=== PATIENT | female | born 1985 | race Caucasian/White ===

== ENCOUNTER 2022-08-28 16:32 | Day surgery (SDC) | payer OTHER ==
[2022-08-28] MEDS ORDERED: hydrALAZINE 20 MG/ML VIAL SLOW IVP PRN (17:21)
[2022-08-28 18:04] VITALS: BMI 33.0
== END 2022-08-28 20:18 | disposition home or self-care (01) ==
LOC: CSHLD/OP 16:32
PROVIDERS: ATTEND Family Medicine
DX: O36.8120 Decreased fetal movements, second trimester, not applicable or unspecified (principal); Z79.899 Other long term (current) drug therapy; Z88.5 Allergy status to narcotic agent; Z88.8 Allergy status to other drugs, medicaments and biological substances; Z3A.22 22 weeks gestation of pregnancy
CPT/HCPCS: 76815; 99281

== ENCOUNTER 2022-12-11 09:00 | Inpatient (IN) | payer OTHER ==
[~2022-12-11 09:00] MED LIST: Bupivacaine 0.25% HCL 30 ML VIAL ONE
[2022-12-11 09:40] VITALS: BMI 35.1
[2022-12-11] MEDS ORDERED: Diphenoxylate HCl/Atropine Tablet PO PRN (09:43)
[2022-12-11] MEDS ORDERED: fentaNYL 50 mcg/mL 1 mL Vial SLOW IVP PRN (09:43)
[2022-12-11] MEDS ORDERED: Lidocaine 1% (PF) 30 ML VIAL SC PRN (09:43)
[2022-12-11] MEDS ORDERED: Ibuprofen 800 MG TAB PO PRN (09:43)
[2022-12-11] MEDS ORDERED: Methylergonovine 0.2 MG/ML VIAL IM PRN (09:43)
[2022-12-11] MEDS ORDERED: Carboprost 250 MCG/ML AMP IM PRN (09:43)
[2022-12-11] MEDS ORDERED: Tranexamic Acid 1,000 MG/10 ML VIAL IVP PRN (09:43)
[2022-12-11] MEDS ORDERED: Promethazine HCl 25 MG/ML VIAL IM PRN ×2 (09:43→14:55)
[2022-12-11] MEDS ORDERED: hydrALAZINE 20 MG/ML VIAL SLOW IVP PRN ×2 (09:43→20:51)
[2022-12-11] MEDS ORDERED: Ondansetron PF 4 MG/2 ML Vial IVP PRN ×3 (09:43→20:51)
[2022-12-11] MEDS ORDERED: Misoprostol 200 MCG TAB PR PRN (09:43)
[2022-12-11] MEDS ORDERED: Lactated Ringer's 1,000 ML IV SCH (09:45)
[2022-12-11] MEDS ORDERED: NS w/ Oxytocin 30 units 500 ML IV SCH ×3 (09:45)
[2022-12-11] MEDS ORDERED: Penicillin G Potassium 5 MILL.UNITS in Sodium Chloride 0.9% 100 ML IVPB SCH (09:45)
[2022-12-11 10:11] LABS: Hematocrit 35.9 % (34.9-44.5); Hemoglobin 12.2 g/dL (12.0-15.5); Mean Corpuscular Hemoglobin 30.8 pg (27.0-33.0); Mean Corpuscular Volume 90.7 fl (81.6-98.3); Mean Platelet Volume 12.9 fl (7.4-10.4); Platelet Count 179 10x3/uL (150-450); RBC Distribution Width 12.9 % (11.5-14.5); Red Blood Cell (RBC) Count 3.96 10x6/uL (3.90-5.03); White Blood Cell (WBC) Count 8.5 10x3/uL (3.5-10.5)
[2022-12-11 10:44] LABS: HBSAg Index 0.19 S/CO (0-0.99); Hep B Surf Ag - L&D Non-Reactive S/CO (NonReactive); Syphilis Antibody Nonreactive (Nonreactive); Syphilis Antibody Index 0.04 S/CO (<1.00 Non-Reactive)
[2022-12-11] MEDS ORDERED: fentaNYL/Ropivacaine Epidural 100 ML ONE (13:17)
[2022-12-11] MEDS: Penicillin G 2.5 MILL.units 2.5 MILL.UNITS in Premix Bag 1 BAG IVPB SCH (14:53)
[2022-12-11] MEDS ORDERED: Lactated Ringer's 500 ML IV PRN (14:55)
[2022-12-11] MEDS ORDERED: Naloxone HCl 0.4 mg/ml Vial IVP PRN ×2 (14:55)
[2022-12-11] MEDS ORDERED: diphenhydrAMINE 50 MG/ML VIAL IVP PRN (14:55)
[2022-12-11] MEDS ORDERED: Moisturizing Cream (Eucerin) 113 GM JAR TOP PRN (14:55)
[2022-12-11] MEDS ORDERED: ePHEDrine Sulfate 50 MG/10 ML VIAL SLOW IVP PRN (14:55)
[2022-12-11] MEDS ORDERED: Acetaminophen 325 MG TAB PO PRN (14:55)
[2022-12-11] MEDS ORDERED: Communication Order-Pharmacy FS SCH (15:00)
[2022-12-11] MEDS ORDERED: fentaNYL 2 mcg/Ropivacaine 0.2% Epidural 100 ML CADD EPIDURAL SCH ×2 (15:00)
[2022-12-11] MEDS ORDERED: Ondansetron PF 4 MG/2 ML Vial ONE (15:18)
[2022-12-11] MEDS ORDERED: Benzocaine-Menthol 82.5 ML CAN TOP PRN (20:51)
[2022-12-11] MEDS ORDERED: Milk Of Magnesia 30 ML UDCUP PO PRN (20:51)
[2022-12-11] MEDS ORDERED: Boostrix 0.5 ML (Tdap) VIAL (>/=7 yrs of age) IM ONE (20:51)
[2022-12-11] MEDS ORDERED: Bisacodyl 10 MG SUPP PR PRN (20:51)
[2022-12-11] MEDS ORDERED: diphenhydrAMINE 25 MG CAP PO PRN (20:51)
[2022-12-11] MEDS: Ibuprofen 800 MG TAB PO SCH (22:20)
[2022-12-11] MEDS: Docusate 100 MG CAP PO SCH (22:20)
[2022-12-12] MEDS: Ibuprofen 800 MG TAB PO SCH ×3 (05:20→21:58)
[2022-12-12] MEDS: HYDROcodone/Acetaminophen 5/325 mg Tablet PO PRN ×3 (06:51→19:40)
[2022-12-12] MEDS: Ferrous Sulfate 325 MG TAB PO SCH ×2 (07:43→14:56)
[2022-12-12] MEDS: Penicillin G 2.5 MILL.units 2.5 MILL.UNITS in Premix Bag 1 BAG IVPB SCH (07:44)
[2022-12-12] MEDS: Docusate 100 MG CAP PO SCH ×2 (09:03→19:40)
[2022-12-12] MEDS: Prenatal Vitamin 1 TAB PO SCH (09:03)
[2022-12-13] MEDS: Ibuprofen 800 MG TAB PO SCH ×2 (06:16→13:32)
[2022-12-13] MEDS: Ferrous Sulfate 325 MG TAB PO SCH (07:32)
[2022-12-13 08:00] VITALS: BP 113/69; TEMP 98.5
[2022-12-13] MEDS: Prenatal Vitamin 1 TAB PO SCH (08:45)
[2022-12-13] MEDS: Docusate 100 MG CAP PO SCH (08:45)
[2022-12-13] MEDS: HYDROcodone/Acetaminophen 5/325 mg Tablet PO PRN ×2 (08:46→13:29)
== END 2022-12-13 16:10 | disposition home or self-care (01) | DRG 807 ==
LOC: CSHLD 09:00 → CSHPP 21:02
PROVIDERS: ADMIT Family Medicine; ATTEND Family Medicine
PROC: 10E0XZZ Delivery of Products of Conception, External Approach (ICD-10-PCS; principal; 2022-12-11)
PROC: 10907ZC Drainage of Amniotic Fluid, Therapeutic from Products of Conception, Via Natural or Artificial Opening (ICD-10-PCS; 2022-12-11)
PROC: 3E033VJ Introduction of Other Hormone into Peripheral Vein, Percutaneous Approach (ICD-10-PCS; 2022-12-11)
PROC: 3E03329 Introduction of Other Anti-infective into Peripheral Vein, Percutaneous Approach (ICD-10-PCS; 2022-12-11)
DX: O36.5930 Maternal care for other known or suspected poor fetal growth, third trimester, not applicable or unspecified (principal); Z37.0 Single live birth; O69.81X0 Labor and delivery complicated by cord around neck, without compression, not applicable or unspecified; Z3A.37 37 weeks gestation of pregnancy; Z88.5 Allergy status to narcotic agent; Z88.2 Allergy status to sulfonamides; O99.824 Streptococcus B carrier state complicating childbirth
CPT/HCPCS: 51702; 85027; 86780; 86850; 86900; 86901; 87340; J2405; J2540; J2590; J3490; S0020

== ENCOUNTER 2022-12-17 16:19 | Emergency (ER) | payer OTHER ==
[2022-12-17 17:06] LABS: #Eosinphils 0.2 10x3/uL (0.0-0.5); #Monocytes 0.6 10x3/uL (0.0-1.1); %Basophils 0.4 % (0.0-2.0); %Lymphocytes 27.1 % (18.0-47.0); %Monocytes 5.3 % (0.0-10.0); %Neutrophils 64.9 % (40.0-75.0); Hematocrit 37.3 % (34.9-44.5); Hemoglobin 12.5 g/dL (12.0-15.5); Mean Corpuscular HGB CONC 33.5 g/dL (32.0-36.0); Mean Corpuscular Hemoglobin 30.6 pg (27.0-33.0); Mean Corpuscular Volume 91.2 fl (81.6-98.3); Mean Platelet Volume 11.3 fl (7.4-10.4); Platelet Count 255 10x3/uL (150-450); RBC Distribution Width 12.8 % (11.5-14.5); Red Blood Cell (RBC) Count 4.09 10x6/uL (3.90-5.03); White Blood Cell (WBC) Count 10.8 10x3/uL (3.5-10.5)
[2022-12-17 17:17] LABS: ALT (SGPT) 17 U/L (8-55); AST (SGOT) 46 U/L (5-34); Albumin 3.8 g/dL (3.5-5.0); Alkaline Phosphatase 79 U/L (40-110); Anion Gap 15 mmol/L (10-20); BUN (Urea Nitrogen) 8 mg/dL (7.0-18.7); Bilirubin, Total 0.5 mg/dL (0.2-1.2); Calc. Creatinine Clearance 0 mL/min (70-130); Calcium 9.5 mg/dL (7.8-10.44); Carbon Dioxide 20 mmol/L (22-29); Chloride 110 mmol/L (98-107); Estimated GFR 109; Glucose 82 mg/dL (70-105); Potassium 3.8 mmol/L (3.5-5.1); Protein, Total 6.8 g/dL (6.0-8.3); Sodium 141 mmol/L (136-145)
== END 2022-12-17 18:36 | disposition home or self-care (01) ==
LOC: CSHERS 16:19
DX: O72.1 Other immediate postpartum hemorrhage (principal); O99.893 Other specified diseases and conditions complicating puerperium; R06.02 Shortness of breath; M79.604 Pain in right leg
CPT/HCPCS: 36415; 80053; 85025; 85379

== ENCOUNTER 2022-12-23 21:48 | Emergency (ER) | payer OTHER ==
[2022-12-24] MEDS ORDERED: fentaNYL 50 mcg/mL 1 mL Vial ONE (00:20)
[2022-12-24] MEDS ORDERED: Ketorolac Tromethamine 30 MG/ML VIAL ONE (00:21)
[2022-12-24] MEDS ORDERED: cefTRIAXone (ROCEPHIN) 1 GM VIAL ONE (00:21)
[2022-12-24] MEDS ORDERED: Ondansetron PF 4 MG/2 ML Vial ONE (00:25)
[2022-12-24 00:51] LABS: Bilirubin Neg (Negative); Blood, Urine 150 (Negative); Clarity Clear (Clear); Glucose, Urine (Dipstick) Normal (Negative); Ketone, Urine 5 mg/dL (Negative); Leukocyte 500 (Negative); Nitrite Negative (Negative); Protein, Urine (Dipstick) 15 mg/dl (Neg-Trace); Specific Gravity, Urine 1.015 (1.005-1.030); Urobilinogen Normal mg/dL (Less than 2)
[2022-12-24 00:51] LABS: #Eosinphils 0.4 10x3/uL (0.0-0.5); #Monocytes 0.4 10x3/uL (0.0-1.1); %Basophils 0.4 % (0.0-2.0); %Eosinophils 4.1 % (0.0-6.0); %Lymphocytes 17.3 % (18.0-47.0); %Monocytes 3.8 % (0.0-10.0); Hematocrit 34.7 % (34.9-44.5); Hemoglobin 11.8 g/dL (12.0-15.5); Mean Corpuscular Hemoglobin 30.6 pg (27.0-33.0); Mean Corpuscular Volume 89.9 fl (81.6-98.3); Mean Platelet Volume 11.6 fl (7.4-10.4); Platelet Count 210 10x3/uL (150-450); RBC Distribution Width 12.4 % (11.5-14.5); Red Blood Cell (RBC) Count 3.86 10x6/uL (3.90-5.03); White Blood Cell (WBC) Count 10.8 10x3/uL (3.5-10.5)
[2022-12-24 00:58] LABS: Bacteria/HPF 1+ HPF (None Seen); CAUTI Indications for Culture Fever or rigors; RBC/HPF 0-3 HPF (0-3); Squamous Epithelial 0-3 HPF (0-3)
[2022-12-24 00:59] LABS: Urine Culture Reflex Yes Yes
[2022-12-24 01:17] LABS: ALT (SGPT) 37 U/L (8-55); AST (SGOT) 44 U/L (5-34); Albumin 3.3 g/dL (3.5-5.0); Alkaline Phosphatase 87 U/L (40-110); Anion Gap 14 mmol/L (10-20); BUN (Urea Nitrogen) 9 mg/dL (7.0-18.7); Bilirubin, Total 0.3 mg/dL (0.2-1.2); Calc. Creatinine Clearance 0 mL/min (70-130); Calcium 8.2 mg/dL (7.8-10.44); Carbon Dioxide 20 mmol/L (22-29); Chloride 108 mmol/L (98-107); Estimated GFR 109; Globulin 2.8 g/dL (2.4-3.5); Glucose 101 mg/dL (70-105); Lipase 30 U/L (8-78); Potassium 2.8 mmol/L (3.5-5.1); Protein, Total 6.1 g/dL (6.0-8.3); Sodium 139 mmol/L (136-145)
[2022-12-24] MEDS ORDERED: Potassium Chloride 20 MEQ TAB ONE (01:36)
[2022-12-24 01:51] LABS: Magnesium 1.5 mg/dL (1.6-2.6)
[2022-12-24] MEDS ORDERED: Magnesium 2 GM/50 ML BAG (IN WATER) ONE (02:38)
== END 2022-12-24 03:23 | disposition home or self-care (01) ==
LOC: CSHERS 21:48
DX: N61.0 Mastitis without abscess (principal); N30.00 Acute cystitis without hematuria; E83.42 Hypomagnesemia; E87.6 Hypokalemia
CPT/HCPCS: 36415; 80053; 81001; 83690; 83735; 85025; 87086; 96365; 96367; 96375; J0696; J1885; J2405; J3010; J3475

== ENCOUNTER 2023-11-08 11:58 | Inpatient (IN) | payer OTHER ==
[2023-11-08 08:40] LABS: #Basophils 0.03 10x3/uL (0.0-0.2); #Eosinphils 0.06 10x3/uL (0.0-0.5); #Monocytes 0.27 10x3/uL (0.0-1.1); #Neutrophils 7.13 10x3/uL (1.5-8.4); %Basophils 0.3 % (0.0-2.0); %Eosinophils 0.7 % (0.0-6.0); %Lymphocytes 18.4 % (18.0-47.0); %Monocytes 2.9 % (0.0-10.0); %Neutrophils 77.4 % (40.0-75.0); Hemoglobin 13.2 g/dL (12.0-15.5); Mean Corpuscular HGB CONC 34.7 g/dL (32.0-36.0); Mean Corpuscular Hemoglobin 30.3 pg (27.0-33.0); Mean Corpuscular Volume 87.4 fL (81.6-98.3); Platelet Count 207 10x3/uL (150-450); RBC Distribution Width 12.4 % (11.5-14.5); Red Blood Cell (RBC) Count 4.35 10x6/uL (3.90-5.03); White Blood Cell (WBC) Count 9.2 10x3/uL (3.5-10.5)
[2023-11-08 08:56] LABS: ALT (SGPT) 11 U/L (8-55); AST (SGOT) 35 U/L (5-34); Albumin 3.4 g/dL (3.5-5.0); Alkaline Phosphatase 43 U/L (40-110); Anion Gap 15 mmol/L (10-20); BUN (Urea Nitrogen) 6 mg/dL (7.0-18.7); Bilirubin, Total 0.4 mg/dL (0.2-1.2); Calc. Creatinine Clearance 0 mL/min (70-130); Calcium 9.2 mg/dL (7.8-10.44); Carbon Dioxide 17 mmol/L (22-29); Chloride 109 mmol/L (98-107); Estimated GFR 110; Globulin 3.5 g/dL (2.4-3.5); Glucose 107 mg/dL (70-105); Potassium 3.9 mmol/L (3.5-5.1); Protein, Total 6.9 g/dL (6.0-8.3); Sodium 137 mmol/L (136-145)
[~2023-11-08 11:58] MED LIST changes: -Bupivacaine 0.25% HCL 30 ML VIAL ONE; +Morphine 2 MG/ML VIAL ONE; +Ondansetron PF 4 MG/2 ML Vial ONE
[2023-11-08 12:28] VITALS: BMI 38.4
[2023-11-08] MEDS ORDERED: Ondansetron PF 4 MG/2 ML Vial IVP PRN (12:59)
[2023-11-08] MEDS ORDERED: hydrALAZINE 20 MG/ML VIAL SLOW IVP PRN (12:59)
[2023-11-08] MEDS ORDERED: Misoprostol 200 MCG TAB PR PRN (12:59)
[2023-11-08] MEDS ORDERED: Lidocaine 1% (PF) 30 ML VIAL SC PRN (12:59)
[2023-11-08] MEDS ORDERED: Tranexamic Acid 1,000 MG/10 ML VIAL IVP PRN (12:59)
[2023-11-08] MEDS ORDERED: Promethazine HCl 25 MG/ML VIAL IM PRN (12:59)
[2023-11-08] MEDS ORDERED: Carboprost 250 MCG/ML AMP IM PRN (12:59)
[2023-11-08] MEDS ORDERED: fentaNYL 50 mcg/mL 1 mL Vial SLOW IVP PRN (12:59)
[2023-11-08] MEDS ORDERED: Methylergonovine 0.2 MG/ML VIAL IM PRN (12:59)
[2023-11-08] MEDS ORDERED: Diphenoxylate HCl/Atropine Tablet PO PRN (12:59)
[2023-11-08] MEDS ORDERED: Oxytocin 30 units/NS 500 ML 500 ML IV SCH (13:00)
[2023-11-08] MEDS: Acetaminophen 500 MG TAB PO PRN (13:42)
[2023-11-08] MEDS: Lactated Ringer's 1,000 ML IV SCH (13:43)
[2023-11-08] MEDS: Misoprostol 100 MCG TAB VAG SCH (14:11)
[2023-11-08] MEDS ORDERED: fentaNYL/Ropivacaine Epidural 0 ML ONE (18:08)
[2023-11-08] MEDS: HYDROcodone/Acetaminophen 5/325 mg Tablet PO PRN (21:36)
[2023-11-08] MEDS: Ibuprofen 800 MG TAB PO PRN (21:38)
[2023-11-09] MEDS ORDERED: Ferrous Sulfate 325 MG TAB PO SCH (08:00)
[2023-11-09] MEDS ORDERED: diphenhydrAMINE 25 MG CAP PO PRN (08:05)
[2023-11-09] MEDS ORDERED: hydrALAZINE 20 MG/ML VIAL SLOW IVP PRN (08:05)
[2023-11-09] MEDS ORDERED: Bisacodyl 10 MG SUPP PR PRN (08:05)
[2023-11-09] MEDS ORDERED: Zolpidem Tartrate 5 MG TAB PO PRN (08:05)
[2023-11-09] MEDS ORDERED: Boostrix 0.5 ML (Tdap) VIAL (>/=7 yrs of age) IM ONE (08:05)
[2023-11-09] MEDS ORDERED: Milk Of Magnesia 30 ML UDCUP PO PRN (08:05)
[2023-11-09] MEDS ORDERED: Promethazine HCl 25 MG/ML VIAL IM PRN (08:05)
[2023-11-09] MEDS ORDERED: Ondansetron PF 4 MG/2 ML Vial IVP PRN (08:05)
[2023-11-09] MEDS ORDERED: HYDROcodone/Acetaminophen 5/325 mg Tablet PO PRN (08:05)
[2023-11-09] MEDS ORDERED: Ibuprofen 800 MG TAB PO SCH (08:30)
[2023-11-09] MEDS ORDERED: Docusate 100 MG CAP PO SCH (09:00)
== END 2023-11-09 10:33 | disposition home or self-care (01) | DRG 779 ==
LOC: CSHLD/OP 11:58 → CSHLD 11:58 → CSHLD/OP 12:01 → CSHLD 12:01 → EDSTATUS 12:13 → CSHLD 12:19
PROVIDERS: ADMIT Family Medicine; ATTEND Family Medicine
PROC: 10E0XZZ Delivery of Products of Conception, External Approach (ICD-10-PCS; principal; 2023-11-08)
DX: O02.1 Missed abortion (principal); O14.12 Severe pre-eclampsia, second trimester; Z3A.19 19 weeks gestation of pregnancy
CPT/HCPCS: 76815; 80053; 85025; 86850; 86900; 86901; 88300; 88305; 93005; 99285; J2272; J2405; J7120

== ENCOUNTER 2024-05-23 22:21 | Emergency (ER) | payer MEDICAID, OTHER ==
[2024-05-23 23:25] LABS: #Basophils 0.05 10x3/uL (0.0-0.2); #Eosinophils 0.07 10x3/uL (0.0-0.5); #Monocytes 0.48 10x3/uL (0.0-1.1); #Neutrophils 5.61 10x3/uL (1.5-8.4); %Basophils 0.5 % (0.0-2.0); %Eosinophils 0.7 % (0.0-6.0); %Lymphocytes 33.3 % (18.0-47.0); %Monocytes 5.1 % (0.0-10.0); %Neutrophils 60.2 % (40.0-75.0); Hematocrit 40.6 % (34.9-44.5); Hemoglobin 13.3 g/dL (12.0-15.5); Mean Corpuscular HGB CONC 32.8 g/dL (32.0-36.0); Mean Corpuscular Hemoglobin 29.8 pg (27.0-33.0); Mean Corpuscular Volume 90.8 fL (81.6-98.3); Mean Platelet Volume 11.3 fL (7.4-10.4); Platelet Count 298 10x3/uL (150-450); RBC Distribution Width 12.3 % (11.5-14.5); Red Blood Cell (RBC) Count 4.47 10x6/uL (3.90-5.03); White Blood Cell (WBC) Count 9.34 10x3/uL (3.5-10.5)
[2024-05-23 23:37] LABS: Anion Gap 13 mmol/L (10-20); BUN (Urea Nitrogen) 7 mg/dL (7.0-18.7); Calc. Creatinine Clearance 0 mL/min (70-130); Calcium 9.3 mg/dL (7.8-10.44); Carbon Dioxide 19 mmol/L (22-29); Chloride 109 mmol/L (98-107); Estimated GFR 105; Glucose 95 mg/dL (70-105); Potassium 3.6 mmol/L (3.5-5.1); Sodium 137 mmol/L (136-145)
[2024-05-23 23:59] LABS: Bilirubin Neg (Negative); Blood, Urine Negative (Negative); Clarity Clear (Clear); Glucose, Urine (Dipstick) Normal (Negative); Ketone, Urine 15 mg/dL (Negative); Leukocyte Negative (Negative); Nitrite Negative (Negative); Protein, Urine (Dipstick) Negative (Neg-Trace); Specific Gravity, Urine 1.025 (1.005-1.030); Urobilinogen Normal mg/dL (Less than 2)
[2024-05-24 00:13] LABS: CAUTI Indications for Culture Pelvic or flank pain; RBC/HPF 0-3 HPF (0-3); WBC/HPF 0-3 HPF (0-3)
[2024-05-24 00:14] LABS: Bacteria/HPF 1+ HPF (None Seen)
[2024-05-24 00:15] LABS: Urine Culture Reflex No No
[2024-05-24] MEDS ORDERED: Acetaminophen 325 MG TAB ONE (01:06)
== END 2024-05-24 03:56 | disposition home or self-care (01) ==
LOC: CSHERS 22:21
DX: O20.0 Threatened abortion (principal); Z87.891 Personal history of nicotine dependence
CPT/HCPCS: 76856; 80048; 81001; 84702; 85025

== ENCOUNTER 2024-05-26 16:53 | Emergency (ER) | payer OTHER ==
[2024-05-26 17:40] LABS: #Basophils 0.04 10x3/uL (0.0-0.2); #Eosinophils 0.07 10x3/uL (0.0-0.5); #Monocytes 0.64 10x3/uL (0.0-1.1); #Neutrophils 3.33 10x3/uL (1.5-8.4); %Basophils 0.7 % (0.0-2.0); %Eosinophils 1.2 % (0.0-6.0); %Lymphocytes 27.8 % (18.0-47.0); %Monocytes 11.3 % (0.0-10.0); %Neutrophils 58.6 % (40.0-75.0); Hematocrit 38.7 % (34.9-44.5); Hemoglobin 12.7 g/dL (12.0-15.5); Mean Corpuscular HGB CONC 32.8 g/dL (32.0-36.0); Mean Corpuscular Hemoglobin 30.4 pg (27.0-33.0); Mean Corpuscular Volume 92.6 fL (81.6-98.3); Mean Platelet Volume 11.3 fL (7.4-10.4); Platelet Count 220 10x3/uL (150-450); RBC Distribution Width 12.7 % (11.5-14.5); Red Blood Cell (RBC) Count 4.18 10x6/uL (3.90-5.03); White Blood Cell (WBC) Count 5.68 10x3/uL (3.5-10.5)
[2024-05-26 17:44] LABS: Bilirubin Neg (Negative); Blood, Urine 25 (Negative); Clarity Clear (Clear); Glucose, Urine (Dipstick) Normal (Negative); Ketone, Urine Negative (Negative); Leukocyte Negative (Negative); Nitrite Negative (Negative); Protein, Urine (Dipstick) 15 mg/dl (Neg-Trace); Urobilinogen Normal mg/dL (Less than 2)
[2024-05-26 17:52] LABS: ALT (SGPT) 13 U/L (8-55); AST (SGOT) 36 U/L (5-34); Albumin 3.7 g/dL (3.5-5.0); Alkaline Phosphatase 42 U/L (40-110); Anion Gap 13 mmol/L (10-20); BUN (Urea Nitrogen) 6 mg/dL (7.0-18.7); Bilirubin, Total 0.2 mg/dL (0.2-1.2); Calc. Creatinine Clearance 0 mL/min (70-130); Calcium 9.1 mg/dL (7.8-10.44); Carbon Dioxide 20 mmol/L (22-29); Chloride 110 mmol/L (98-107); Estimated GFR 107; Globulin 3.5 g/dL (2.4-3.5); Glucose 91 mg/dL (70-105); Potassium 3.9 mmol/L (3.5-5.1); Protein, Total 7.2 g/dL (6.0-8.3); Sodium 139 mmol/L (136-145)
[2024-05-26 19:03] LABS: Bacteria/HPF Rare-Few HPF (None Seen); CAUTI Indications for Culture Pregnancy; RBC/HPF 0-3 HPF (0-3); Squamous Epithelial 0-3 HPF (0-3); WBC/HPF 0-3 HPF (0-3)
[2024-05-26 19:04] LABS: Urine Culture Reflex Yes Yes
== END 2024-05-26 20:13 | disposition home or self-care (01) ==
LOC: CSHERS 16:53
DX: O03.4 Incomplete spontaneous abortion without complication (principal); O98.511 Other viral diseases complicating pregnancy, first trimester; B34.9 Viral infection, unspecified
CPT/HCPCS: 36415; 76801; 80053; 81001; 84702; 85025; 87086; 87428

== ENCOUNTER 2024-06-13 13:32 | Emergency (ER) | payer OTHER ==
[2024-06-13 14:36] LABS: #Basophils 0.06 10x3/uL (0.0-0.2); #Eosinophils 0.11 10x3/uL (0.0-0.5); #Monocytes 0.35 10x3/uL (0.0-1.1); #Neutrophils 4.28 10x3/uL (1.5-8.4); %Basophils 0.8 % (0.0-2.0); %Eosinophils 1.4 % (0.0-6.0); %Lymphocytes 38.7 % (18.0-47.0); %Monocytes 4.5 % (0.0-10.0); %Neutrophils 54.3 % (40.0-75.0); Hematocrit 35.4 % (34.9-44.5); Hemoglobin 12.1 g/dL (12.0-15.5); Mean Corpuscular HGB CONC 34.2 g/dL (32.0-36.0); Mean Corpuscular Hemoglobin 30.5 pg (27.0-33.0); Mean Corpuscular Volume 89.2 fL (81.6-98.3); Mean Platelet Volume 11.2 fL (7.4-10.4); Platelet Count 336 10x3/uL (150-450); RBC Distribution Width 12.7 % (11.5-14.5); Red Blood Cell (RBC) Count 3.97 10x6/uL (3.90-5.03); White Blood Cell (WBC) Count 7.86 10x3/uL (3.5-10.5)
[2024-06-13 14:47] LABS: PTT 27.6 sec (22.0-33.0); Prothrombin Time 10.7 sec (9.5-12.1)
[2024-06-13] MEDS ORDERED: Ketorolac Tromethamine 30 MG (1 mL) VIAL ONE (15:05)
[2024-06-13 15:12] LABS: ALT (SGPT) 17 U/L (Less than 34); AST (SGOT) 55 U/L (11-34); Albumin 4.1 g/dL (3.1-4.5); Alkaline Phosphatase 58 U/L (40-110); Anion Gap 15 mmol/L (10-20); BUN (Urea Nitrogen) 7 mg/dL (7.0-18.7); Bilirubin, Total 0.7 mg/dL (0.3-1.2); Calc. Creatinine Clearance 0 mL/min (70-130); Calcium 9.5 mg/dL (7.8-10.44); Carbon Dioxide 20 mmol/L (22-29); Chloride 108 mmol/L (98-107); Estimated GFR 102; Globulin 3.1 g/dL (2.4-3.5); Glucose 106 mg/dL (70-105); Lipase 35 U/L (8-78); Magnesium 1.9 mg/dL (1.6-2.6); Potassium 3.9 mmol/L (3.5-5.1); Protein, Total 7.2 g/dL (6.0-8.3); Sodium 139 mmol/L (136-145)
[2024-06-13] MEDS ORDERED: Misoprostol 200 MCG TAB ONE (16:05)
[2024-06-13] MEDS ORDERED: Acetaminophen 500 MG TAB ONE (17:27)
== END 2024-06-13 19:04 | disposition home or self-care (01) ==
LOC: CSHERS 13:32
DX: O03.4 Incomplete spontaneous abortion without complication (principal); Z87.891 Personal history of nicotine dependence
CPT/HCPCS: 36415; 76856; 80053; 83690; 83735; 84702; 85025; 85610; 85730; 86850; 86900; 86901; 93005; 96374; J1885

== ENCOUNTER 2024-12-12 21:07 | Emergency (ER) | payer OTHER | END 2024-12-12 23:15 | disposition home or self-care (01) | LOC: CSHERS 21:07 | DX: O46.8X1 Other antepartum hemorrhage, first trimester (principal); Z87.891 Personal history of nicotine dependence; Z55.6 Problems related to health literacy; Z3A.11 11 weeks gestation of pregnancy | CPT/HCPCS: 76801; 76857 ==

== ENCOUNTER 2024-12-23 10:39 | Outpatient (CLI) | payer OTHER | END 2024-12-23 10:40 | disposition home or self-care (01) | LOC: CSHMAMMO 10:39 | DX: N63.20 Unspecified lump in the left breast, unspecified quadrant (principal) ==

== ENCOUNTER 2025-01-12 18:22 | Emergency (ER) | payer OTHER ==
[2025-01-12] MEDS ORDERED: Acetaminophen 500 MG TAB ONE (21:08)
[2025-01-12 21:43] LABS: Glucose, Urine (Dipstick) Normal (Negative); Leukocyte Negative (Negative); Protein, Urine (Dipstick) Negative (Neg-Trace); Specific Gravity, Urine 1.015 (1.005-1.030)
[2025-01-12 22:02] LABS: Anion Gap 17 mmol/L (10-20); Chloride 107 mmol/L (98-107); Globulin 3.7 g/dL (2.4-3.5); Potassium 3.6 mmol/L (3.5-5.1); Sodium 139 mmol/L (136-145)
[2025-01-12 22:04] LABS: #Basophils 0.03 10x3/uL (0.0-0.2); #Eosinophils 0.21 10x3/uL (0.0-0.5); #Monocytes 0.44 10x3/uL (0.0-1.1); #Neutrophils 4.37 10x3/uL (1.5-8.4); %Basophils 0.4 % (0.0-2.0); %Eosinophils 2.5 % (0.0-6.0); %Lymphocytes 39.0 % (18.0-47.0); %Monocytes 5.3 % (0.0-10.0); %Neutrophils 52.6 % (40.0-75.0); Hematocrit 37.4 % (34.9-44.5); Hemoglobin 12.7 g/dL (12.0-15.5); Mean Corpuscular Hemoglobin 29.9 pg (27.0-33.0); Mean Corpuscular Volume 88.0 fL (81.6-98.3); Platelet Count 266 10x3/uL (150-450); Red Blood Cell (RBC) Count 4.25 10x6/uL (3.90-5.03); White Blood Cell (WBC) Count 8.31 10x3/uL (3.5-10.5)
[2025-01-12 22:16] LABS: ALT (SGPT) 7 U/L (Less than 34); AST (SGOT) 37 U/L (11-34); Albumin 4.1 g/dL (3.1-4.5); Alkaline Phosphatase 47 U/L (40-110); BUN (Urea Nitrogen) 7 mg/dL (7.0-18.7); Bilirubin, Total 0.2 mg/dL (0.3-1.2); Calc. Creatinine Clearance 0 mL/min (70-130); Calcium 9.3 mg/dL (7.8-10.44); Carbon Dioxide 19 mmol/L (22-29); Glucose 90 mg/dL (70-105)
[2025-01-12 22:48] LABS: Bacteria/HPF Rare-Few HPF (None Seen); CAUTI Indications for Culture Pelvic or flank pain; RBC/HPF 0-3 HPF (0-3); WBC/HPF 0-3 HPF (0-3)
[2025-01-12 22:49] LABS: Urine Culture Reflex No No
== END 2025-01-12 23:05 | disposition home or self-care (01) ==
LOC: CSHERS 18:22
DX: O99.891 Other specified diseases and conditions complicating pregnancy (principal); R10.2 Pelvic and perineal pain; O09.522 Supervision of elderly multigravida, second trimester; Z3A.15 15 weeks gestation of pregnancy
CPT/HCPCS: 36415; 76856; 80053; 81001; 84702; 85025; 86900; 86901; 99284

== ENCOUNTER 2025-02-03 20:55 | Emergency (ER) | payer OTHER | END 2025-02-03 22:30 | disposition home or self-care (01) | LOC: CSHERS 20:55 | DX: O09.522 Supervision of elderly multigravida, second trimester (principal); Z3A.19 19 weeks gestation of pregnancy ==

== ENCOUNTER 2025-02-17 12:14 | Outpatient (CLI) | payer OTHER | END 2025-02-17 12:15 | disposition home or self-care (01) | LOC: CSHULT 12:14 | PROVIDERS: ATTEND Family Medicine | DX: O09.892 Supervision of other high risk pregnancies, second trimester (principal); Z3A.20 20 weeks gestation of pregnancy | CPT/HCPCS: 76805 ==

== ENCOUNTER 2025-02-27 07:48 | Day surgery (SDC) | payer OTHER ==
[2025-02-27] MEDS ORDERED: hydrALAZINE 20 MG/ML VIAL SLOW IVP PRN (08:21)
== END 2025-02-27 09:58 | disposition home or self-care (01) ==
LOC: CSHLD/OP 07:48
PROVIDERS: ATTEND Family Medicine
DX: O36.8120 Decreased fetal movements, second trimester, not applicable or unspecified (principal); O09.522 Supervision of elderly multigravida, second trimester; Z3A.22 22 weeks gestation of pregnancy; Z88.8 Allergy status to other drugs, medicaments and biological substances; Z88.5 Allergy status to narcotic agent; Z88.1 Allergy status to other antibiotic agents; Z88.2 Allergy status to sulfonamides
CPT/HCPCS: 76815; 99284

== ENCOUNTER 2025-04-02 06:04 | Emergency (ER) | payer OTHER ==
[2025-04-02] MEDS ORDERED: Dexamethasone 10 MG/ML VIAL ONE (06:40)
[2025-04-02 06:52] LABS: #Basophils 0.04 10x3/uL (0.0-0.2); #Eosinophils 0.23 10x3/uL (0.0-0.5); #Monocytes 0.59 10x3/uL (0.0-1.1); #Neutrophils 4.55 10x3/uL (1.5-8.4); %Basophils 0.6 % (0.0-2.0); %Eosinophils 3.2 % (0.0-6.0); %Lymphocytes 25.0 % (18.0-47.0); %Monocytes 8.1 % (0.0-10.0); %Neutrophils 62.8 % (40.0-75.0); Hematocrit 34.7 % (34.9-44.5); Hemoglobin 11.9 g/dL (12.0-15.5); Mean Corpuscular Hemoglobin 30.3 pg (27.0-33.0); Mean Corpuscular Volume 88.3 fL (81.6-98.3); Platelet Count 231 10x3/uL (150-450); Red Blood Cell (RBC) Count 3.93 10x6/uL (3.90-5.03); White Blood Cell (WBC) Count 7.24 10x3/uL (3.5-10.5)
[2025-04-02 07:05] LABS: ALT (SGPT) 10 U/L (Less than 34); AST (SGOT) 34 U/L (11-34); Albumin 3.4 g/dL (3.1-4.5); Alkaline Phosphatase 57 U/L (40-110); Anion Gap 13 mmol/L (10-20); BUN (Urea Nitrogen) 4 mg/dL (7.0-18.7); Bilirubin, Total 0.3 mg/dL (0.3-1.2); Calc. Creatinine Clearance 0 mL/min (70-130); Calcium 7.9 mg/dL (7.8-10.44); Carbon Dioxide 19 mmol/L (22-29); Chloride 110 mmol/L (98-107); Globulin 3.2 g/dL (2.4-3.5); Glucose 101 mg/dL (70-105); Magnesium 1.8 mg/dL (1.6-2.6); Potassium 4.0 mmol/L (3.5-5.1); Sodium 138 mmol/L (136-145)
[2025-04-02] MEDS ORDERED: Albuterol 2.5 MG (0.5 mL) NEB ONE (07:08)
[2025-04-02 07:14] LABS: Troponin I Less than 0.010 ng/mL (< 0.028)
[2025-04-02 07:24] LABS: Glucose, Urine (Dipstick) Normal (Negative); Leukocyte Negative (Negative); Protein, Urine (Dipstick) Negative (Neg-Trace); Specific Gravity, Urine 1.005 (1.005-1.030)
[2025-04-02 07:44] LABS: Bacteria/HPF 1+ HPF (None Seen); CAUTI Indications for Culture Pregnancy; RBC/HPF 0-3 HPF (0-3); WBC/HPF 0-3 HPF (0-3)
[2025-04-02 07:45] LABS: Urine Culture Reflex Yes Yes
== END 2025-04-02 08:20 | disposition home or self-care (01) ==
LOC: CSHERS 06:04
DX: O98.512 Other viral diseases complicating pregnancy, second trimester (principal); B34.9 Viral infection, unspecified; Z3A.25 25 weeks gestation of pregnancy
CPT/HCPCS: 80053; 81001; 83735; 83880; 84484; 85025; 87086; 87428; 93005; 94640; 96374; 96375; J1100; J7611

== ENCOUNTER 2025-04-16 16:49 | Day surgery (SDC) | payer OTHER ==
[2025-04-16 17:24] VITALS: BMI 39.1
[2025-04-16] MEDS ORDERED: hydrALAZINE 20 MG/ML VIAL SLOW IVP PRN (17:34)
[2025-04-16 18:11] LABS: Glucose, Urine (Dipstick) Normal (Negative); Leukocyte Negative (Negative); Protein, Urine (Dipstick) Negative (Neg-Trace); Specific Gravity, Urine 1.010 (1.005-1.030)
[2025-04-16 18:46] LABS: Bacteria/HPF 2+ HPF (None Seen); CAUTI Indications for Culture Pregnancy; RBC/HPF 0-3 HPF (0-3); WBC/HPF 0-3 HPF (0-3)
[2025-04-16 18:48] LABS: Urine Culture Reflex Yes Yes
== END 2025-04-16 19:58 | disposition home or self-care (01) ==
LOC: CSHLD/OP 16:49
PROVIDERS: ATTEND Family Medicine
DX: O99.891 Other specified diseases and conditions complicating pregnancy (principal); R10.9 Unspecified abdominal pain; M54.50 Low back pain, unspecified; O09.523 Supervision of elderly multigravida, third trimester; O09.43 Supervision of pregnancy with grand multiparity, third trimester; Z3A.28 28 weeks gestation of pregnancy; Z88.2 Allergy status to sulfonamides; Z88.5 Allergy status to narcotic agent; Z88.8 Allergy status to other drugs, medicaments and biological substances; Z88.1 Allergy status to other antibiotic agents
CPT/HCPCS: 76815; 76817; 81001; 87086; 99283